=== PATIENT | male | born 1935 | race Caucasian/White ===

== ENCOUNTER → 2021-11-21 | Outpatient (CLI) | payer MEDICARE, OTHER ==
[~2021-11-21] MED LIST: ACET325; Azor 10-20 MG1 EACH; DICL25ER; ERGO400; ESOM20; FLUOROURACIL; GABA100; HYDR-86; METO25ER; MULVITMIND; TRAM50
== END | disposition home or self-care (01) ==
LOC: LAB SHORT 12:06
DX: C44.619 Basal cell carcinoma of skin of left upper limb, including shoulder (principal); C44.319 Basal cell carcinoma of skin of other parts of face
CPT/HCPCS: 88305

== ENCOUNTER → 2022-03-22 | Outpatient (CLI) | payer MEDICARE, OTHER | END | disposition home or self-care (01) | LOC: LAB 08:11 → LAB SHORT 08:11 | DX: L08.0 Pyoderma (principal) | CPT/HCPCS: 87070; 87077; 87147; 87186; 87205 ==

== ENCOUNTER → 2022-07-18 | Outpatient (CLI) | payer MEDICARE, OTHER | END | disposition home or self-care (01) | LOC: LAB 12:41 → LAB SHORT 12:41 | DX: N39.0 Urinary tract infection, site not specified (principal) | CPT/HCPCS: 87086 ==

== ENCOUNTER → 2023-05-30 | Outpatient (CLI) | payer MEDICARE, OTHER | LOC: PLD 13:04 | DX: C44.712 Basal cell carcinoma of skin of right lower limb, including hip (principal); C44.612 Basal cell carcinoma of skin of right upper limb, including shoulder; L57.0 Actinic keratosis; C44.719 Basal cell carcinoma of skin of left lower limb, including hip; C44.319 Basal cell carcinoma of skin of other parts of face ==